=== PATIENT | female | born 1965 | race Caucasian/White ===

== ENCOUNTER 2020-07-25 02:26 | Outpatient (CLI) | payer OTHER, SELFPAY ==
[2020-07-25 21:22] LABS: SARS-CoV-2 RNA PCR Negative
== END 2020-07-25 02:27 | disposition home or self-care (01) ==
LOC: ANHCOVIDDT 02:27
PROVIDERS: PCP Internal Medicine; Visit Provider Surgery
DX: Z01.812 Encounter for preprocedural laboratory examination (principal); Z20.828 Contact with and (suspected) exposure to other viral communicable diseases
CPT/HCPCS: 87635; C9803; U0003

== ENCOUNTER 2020-07-28 01:22 | Day surgery (SDC) | payer OTHER, SELFPAY ==
[2020-07-20 14:54] VITALS: BMI 28.3
[2020-07-28 06:12] VITALS: BP 151/74; PULSE 64; RESP 16; TEMP 36.2; O2SAT 99
[2020-07-28] MEDS: LACTATED RINGERS 1,000 ML 150 ML IV CONT (06:17)
--- NOTE | 2020-07-28 07:26 | WPDANESEPPF ---
Anes - Initial Pre Proc Eval Procedure: Operation Date: 07/28/20 07:30 Proposed Procedures p Screening Colonoscopy - Marquise Douglas DO Date/Time: 07/28/20 07:26 Surgeon: Marquise Douglas DO Pre Op Diagnosis: neoplasm screening Patient Data Age: 55 Gender: F Height: 5 ft 4 in Weight: 73.9 kg Last Vital Signs Temp 97.2 F L 07/28/20 06:12 Pulse 64 07/28/20 06:12 Resp 16 07/28/20 06:12 BP 151/74 H 07/28/20 06:12 Pulse Ox 99 07/28/20 06:12 Allergies Allergy/AdvReac Type Severity Reaction Status Date / Time No Known Allergies Allergy Verified 07/28/20 06:12 Home Medications Medication Instructions Recorded Confirmed Type alprazolam 0.5 mg PO DAILY 07/20/20 07/20/20 History benzonatate 100 mg PO DAILY 07/20/20 07/20/20 History Patient hx anesthesia problems: none Family hx anesthesia problems: none [facility] Past Medical History Medical History (Updated 07/28/20 @ 07:16 by Malcolm Noriega MD) Anxiety Arthritis Social History Social History Living arrangements: alone Spiritual care concerns: No Anes - Eval Final PreProcedure Day of Procedure 07/28/20 07:26 Patient weight: normal Heart: regular rate and rhythm Lungs: clear to auscultation Airway: Mallampati scale class II Neurological: alert and oriented Last oral intake: >/= 8 hours ASA classification: II Emergent: no Anesthetic plan: proceed Anesthesia type and monitoring: general GIVS and standard monitoring Informed Consent: The patient's anesthetic plan and its attendant risks and benefits were discussed with the patient/family/POA. Questions were solicited and answers provided to the satisfaction of the patient/family/POA.
--- NOTE | 2020-07-28 07:27 | PM.IMHP ---
H&P: HPI History of Present Illness Date/Time: 07/28/20 07:27 Chief complaint: neoplasm screening Narrative: Terri Jackman is a 55 year old female who presents for colonoscopy. she has never had one before. Denies hematochezia or melena. No fam hx colon cancer. Review of Systems Review of Systems: All systems reviewed & are unremarkable except as noted in HPI and below Constitutional: Constitutional: Denies chills, Denies fever(s), Denies headache(s) and Denies weight loss Eyes: Eyes: Denies change in vision ENT: Denies dizziness, Denies headache(s), Denies neck mass and Denies throat swelling Cardiovascular: Cardiovascular: Denies chest pain, Denies lightheadedness and Denies dyspnea Respiratory: Respiratory: Denies cough, Denies dyspnea and Denies wheezing Gastrointestinal: Gastrointestinal: Denies abdominal pain, Denies change in bowel habits, Denies nausea and Denies vomiting Genitourinary: Genitourinary: Denies hematuria and Denies dysuria Musculoskeletal: Musculoskeletal: Reports as per HPI Integumentary/Breasts: Skin/Breast: Reports as per HPI Neurologic: Denies dizziness and Denies headache(s) Allergic/Immunologic: Allergic/Immunologic: Denies throat swelling and Denies wheezing PMFSH Past Medical History Medical History Anxiety Arthritis Social History Social History Living arrangements: alone Spiritual care concerns: No Meds Home Medications and Allergies Home Medications Medication Instructions Recorded Confirmed Type alprazolam 0.5 mg PO DAILY 07/20/20 07/20/20 History benzonatate 100 mg PO DAILY 07/20/20 07/20/20 History Allergies Allergy/AdvReac Type Severity Reaction Status Date / Time No Known Allergies Allergy Verified 07/28/20 06:12 Vital Signs Vital Signs - 24 hr 07/28/20 06:12 Temperature 36.2 C L Pulse Rate 64 Respiratory Rate 16 Blood Pressure 151/74 H Pulse Oximetry 99 Exam Const: General: no acute distress and alert Orientation/consciousness: patient oriented x3 HENMT: Head: normocephalic and atraumatic Ears: hearing grossly normal bilaterally General nose exam: Normal nares present Mouth: Yes Normal oral and palatal mucosa present Eyes: Periorbital: periorbital findings normal Sclera: sclerae normal EOM: EOMs intact bilaterally Neck: Neck: normal visual inspection, no lymphadenopathy and trachea midline Chest: Chest palpation & inspection: normal inspection of the chest Resp: Effort & Inspection: normal respiratory effort Auscultation: clear to auscultation bilaterally Cardio: Jugular venous distension: no JVD Rate: regular rate Rhythm: regular rhythm Heart sounds: S1 normal heart sound present and S2 normal heart sound present Peripheral pulses: Peripheral pulses 2+ throughout GI: Inspection: normal to inspection GI Palp: Yes Soft to palpation, No Tenderness to palpation present (GI), No Guarding due to palpation present (GI) and No Rebound tenderness present Percussion: Yes normal to percussion Auscultation: normal bowel sounds : General: Yes no CVA tenderness Back/Spine/Pelvis: Back: no CVA tenderness Neuro: General: patient oriented x3, no focal motor deficits and CN's II-XI intact bilaterally Cognition (Neuro): normal cognition Speech: normal speech Motor exam (neuro): 5/5 motor strength present throughout Extrem: General: capillary refill normal and no clubbing, cyanosis or edema Assessment and Plan Assessment and plan (1) Screening for colorectal cancer: Code(s): Z12.11 - Encounter for screening for malignant neoplasm of colon; Z12.12 - Encounter for screening for malignant neoplasm of rectum Status: Acute Assessment and Plan: I have recommended colonoscopy. I have discussed the procedure, risks, benefits, and alternatives with the patient. All questions answered.
[2020-07-28 07:58] VITALS: BP 126/64; PULSE 72; RESP 20; O2SAT 100
[2020-07-28 08:08] VITALS: BP 116/64; PULSE 62; RESP 20; O2SAT 100
[2020-07-28 08:18] VITALS: BP 118/77; PULSE 60; RESP 20; O2SAT 100
== END 2020-07-28 08:37 | disposition home or self-care (01) ==
PROVIDERS: PCP Internal Medicine; Visit Provider Surgery
PROC: 0DJD8ZZ Inspection of Lower Intestinal Tract, Via Natural or Artificial Opening Endoscopic (ICD-10-PCS; CPT 45378; principal; 2020-07-28 07:30)
DX: Z12.11 Encounter for screening for malignant neoplasm of colon (principal); K57.30 Diverticulosis of large intestine without perforation or abscess without bleeding; K62.1 Rectal polyp; F41.9 Anxiety disorder, unspecified
CPT/HCPCS: 45380; 88305; J2704; J7120

== ENCOUNTER 2022-09-24 12:48 | Emergency (ER) | payer OTHER, SELFPAY ==
--- NOTE | ~2022-09-24 | XR_ITS ---
XR chest 2V 09/24/2022 13:21 Indication: Chest pain Procedure: 2 view chest Comparison: No prior studies for comparison. Findings: Heart size normal. No focal air space disease, pulmonary edema, pleural effusion or suspect ed pneumothorax. Port catheter tip in the SVC. There are bilateral breast implants. Impression: 1: No acute cardiopulmonary disease. Reviewed, dictated and finalized at location A. ET PRESS ASSISTANT Impression: 1: No acute cardiopulmonary disease.
--- NOTE | ~2022-09-24 | CT_ITS ---
EXAMINATION: CTA chest PE protocol DATE: 09/24/2022 20:01 INDICATION: CP, Hx of DVT, +dimer TECHNIQUE: Computed tomography angiography (CTA) of the chest was performed with 100 mL Omnipaque-350 intravenous contrast timed to evaluate the pulmonary arteries. Coronal maximum intensity projection 3D-reconstructions were created by the technologist. The dose-length product (DLP) was 214.72 mGy-cm. Automated exposure control and iterative reconstruction technique were employed. COMPARISON: 09/24/2022. FINDINGS: Lung parenchyma and airways: Cavitary lesion in the right lower lobe measuring 3.1 cm AP by 3.8 cm tr ansverse by 3.2 cm craniocaudad the wall of the cavity is only mildly thickened and fairly uniform, w ith a small amount of internal debris. Pleura: Unremarkable. Thoracic inlet, axillae and chest wall: Bilateral breast implants. Implanted left chest port, termina ting in the distal SVC. Thoracic aorta: Normal. 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 Heart and pericardium: Normal. Coronary artery calcifications: Absent. Upper abdomen: No significant finding. Bones: No acute osseous finding. Pulmonary arteries: Study quality: Adequate. No pulmonary emboli detected. IMPRESSION: 1. No CT evidence of acute pulmonary embolus. 2. Solitary, 3.8 cm cavitary lesion in the right lower lobe. This finding can be seen with, but is no t limited to: infection (cavitating pneumonia, pulmonary tuberculosis, fungal/atypical), malignancy ( primary or secondary), or inflammatory change (Jarred's granulomatosis or rheumatoid nodule). Reviewed, dictated and finalized at location K. ICATION SYSTEMS ARCHITECT IMPRESSION: 1. No CT evidence of acute pulmonary embolus. 2. Solitary, 3.8 cm cavitary lesion in the right lower lobe. This finding can b e seen with, but is not limited to: infection (cavitating pneumonia, pulmonary tuberculosis, fungal/atypical), malignancy (primary or secondary), or inflammat ory change (Jarred's granulomatosis or rheumatoid nodule).
[2022-09-24 12:51] VITALS: BP 159/101; PULSE 77; RESP 20; TEMP 36.1; O2SAT 98
--- NOTE | 2022-09-24 12:54 | ECG_ITS ---
Measurements Intervals [place] Rate: 72 P: 58 UT: 182 QRS: 20 QRSD: 85 T: 38 QT: 386 QTc: 424 Interpretive Statements SINUS RHYTHM LOW QRS VOLTAGE IN PRECORDIAL LEADS BASELINE ARTIFACT- I, II, AVR BORDERLINE ECG NO PREVIOUS ECG AVAILABLE FOR COMPARISON Electronically Signed On 09-24-2022 13:07:51 INSTRUMENT AND CONTROLS TECHNICIAN by Yifan Romero D.O.
[2022-09-24 13:35] LABS: Basophils Percent Auto 0.7 % (0.2-1.2); Eosinophils Absolute Auto 0.1 K/mm3 (0-0.3); Eosinophils Percent Auto 2.1 % (0-4.4); Hematocrit 46.3 % (37.0-47.0); Hemoglobin 14.9 g/dL (12.0-15.0); Immature Granulocyte Absolute 0.02 K/mm3 (0.00-0.031); Immature Granulocyte Percent A 0.3 % (0-0.5); Lymphocytes Absolute Auto 1.74 K/mm3 (0.9-3.2); Lymphocytes Percent Auto 28.8 % (18.3-44.2); Mean Corpuscular HGB Conc 32.2 g/dl (32-36); Mean Corpuscular Hemoglobin 29.7 pg (26-34); Mean Corpuscular Volume 92.4 fl (80-100); Mean Platelet Volume 8.9 fl (7.4-10.4); Monocytes Absolute Auto 0.5 K/mm3 (0.1-0.6); Monocytes Percent Auto 8.9 % (2.6-8.5); Neutrophils Absolute Auto 3.6 K/mm3 (1.3-6.7); Neutrophils Percent Auto 59.2 % (45.5-73.1); Platelet Count Result 222 k/mm3 (150-375); Red Blood Count 5.01 M/mm3 (4.2-5.4); Red Cell Distribution Width 15.2 % (11.5-14.5); White Blood Count 6.1 K/mm3 (4.5-10.0)
[2022-09-24 13:41] LABS: Alanine Aminotransferase 18 U/L (6-35); Albumin Level 4.5 g/dL (3.5-5.1); Alkaline Phosphatase 98 U/L (38-126); Anion Gap 7 mmol/L (8-16); Aspartate Amino Transferase 27 U/L (14-36); Bilirubin,Total 0.7 mg/dL (0.2-1.3); Blood Urea Nitrogen 15 mg/dL (7-17); Calcium 8.9 mg/dL (8.4-10.2); Carbon Dioxide 27 mmol/L (22-30); Chloride 106 mmol/L (98-107); Estimated CRCL calculation 73 ml/min; Estimated Glomerular Filt Rate > 60; Glucose 100 mg/dL (65-110); Lipase 71 U/L (23-300); Prothrombin Time 12.8 Seconds (11.1-14.7); Sodium 140 mmol/L (137-145)
[2022-09-24 13:42] LABS: Partial Thromboplastin Time 26.8 SECONDS (22.3-36.8)
[2022-09-24 13:52] LABS: Troponin I < 0.012 ng/mL (0.000-0.034)
[2022-09-24 16:58] LABS: Troponin I < 0.012 ng/mL (0.000-0.034)
[2022-09-24 18:06] VITALS: BP 172/105; PULSE 78; RESP 18; O2SAT 100
[2022-09-24 18:11] VITALS: PULSE 67
[2022-09-24] MEDS: ASPIRIN 81 MG CHEWABLE TABLET 324 MG PO (18:20)
--- NOTE | 2022-09-24 18:31 | ED.CHESTPAIN ---
HPI - Chest Pain General Chief Complaint: Chest Pain Stated Complaint: chest pain with jaw and left arm pain/numbness Time Seen by Provider: 09/24/22 18:26 Source: patient Mode of arrival: ambulatory Limitations: no limitations History of Present Illness HPI narrative: Patient is 57-year-old female who presents to the ED with report of chest pain. Patient reports she woke up Saturday morning with slight tingling in her left hand. She also noted to having slight discomfort in her left sided jaw. She does note a history of grinding her teeth and did not think much of this at first. The tingling and jaw pain were intermittent throughout the day. She also developed slight heaviness in her lower midsternal chest that day. Her symptoms continued intermittently into today, which prompted her presentation. 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 She is concerned she may have a blood clot in her lungs. She denies any SOB, [place], nausea, vomiting, abdominal pain, fevers, cough or cold symptoms. Denies lower extremity pain or swelling, recent long distance travel. Patient has a previous history of cigarette smoking, quit 13 years ago. History of lung cancer in remission. Denies history of hypertension, hyperlipidemia, diabetes, family history of heart disease in her immediate family members. Related Data Home Medications Medication Instructions Recorded Confirmed alprazolam 0.5 mg tablet 0.5 mg PO DAILY 07/20/20 07/20/20 benzonatate 100 mg capsule 100 mg PO DAILY 07/20/20 07/20/20 levothyroxine 112 mcg tablet mcg 09/24/22 sertraline 50 mg tablet mg 09/24/22 topiramate 50 mg tablet mg 09/24/22 09/24/22 Allergies Allergy/AdvReac Type Severity Reaction Status Date / Time No Known Allergies Allergy Verified 09/24/22 12:48 Review of Systems Review of Systems: CONSTITUTIONAL: Denies fever, chills, or sweats. ENT: Denies rhinorrhea, congestion, sore throat. CARDIOVASCULAR: See HPI. RESPIRATORY: See HPI. GASTROINTESTINAL: Denies abdominal pain, nausea, vomiting, or diarrhea. NEUROLOGIC: See HPI. All systems reviewed & are unremarkable except as noted in HPI and below PMFSH Past Medical History Medical History Anxiety Arthritis History of pulmonary embolism Lung cancer Surgical History Surgical History No pertinent past surgical history Social History Social History Alcohol intake: current Spiritual care concerns: No Exam Narrative: GENERAL: Well appearing, well-nourished, non-toxic, in no acute distress. HEAD: Normocephalic, atraumatic. NECK: Supple. No adenopathy, no masses. RESPIRATORY: Airway patent, respirations nonlabored. Clear to auscultation bilaterally, no rales, rhonchi, wheezing. CARDIOVASCULAR: Regular rate and rhythm without murmurs, rubs, or gallops. Peripheral pulses 2+ and equal bilaterally. ABDOMINAL: Soft, nontender, nondistended, no hepatosplenomegaly. Normoactive BS. MUSCULOSKELETAL: Moves all extremities. Strength/ROM intact without gross deformities. No edema. No calf tenderness. No chest wall tenderness to palpation. SKIN: Warm, dry, normal color. No rashes. NEURO: A&O X3. Speech clear. Cranial nerves II-XII grossly intact. Steady gait. No ataxic movements. PSYCHIATRIC: Appropriate mood and affect. Normal interaction. Course Vital Signs Vital signs: Vital Signs Temperature 97.0 F L 09/24/22 12:51 Pulse Rate 77 09/24/22 12:51 Respiratory Rate 20 09/24/22 12:51 Blood Pressure 159/101 H 09/24/22 12:51 Pulse Oximetry 98 09/24/22 12:51 Oxygen Delivery Room Air 09/24/22 12:51 Temperature 97.0 F L 09/24/22 12:51 Pulse Rate 69 09/24/22 19:29 Respiratory Rate 17 09/24/22 19:29 Blood Pressure 158/89 H 09/24/22 19:36 P
[2022-09-24 19:10] LABS: D Dimer 0.72 ug/mL (<0.48)
[2022-09-24 19:14] LABS: Troponin I < 0.012 ng/mL (0.000-0.034)
[2022-09-24 19:29] VITALS: PULSE 69; RESP 17; O2SAT 98
[2022-09-24 19:36] VITALS: BP 158/89
== END 2022-09-24 21:43 | disposition home or self-care (01) ==
PROVIDERS: Emergency Medicine; Emergency Provider Physician Assistant; PCP Internal Medicine
DX: R07.89 Other chest pain (principal); R03.0 Elevated blood-pressure reading, without diagnosis of hypertension; R91.8 Other nonspecific abnormal finding of lung field; Z85.118 Personal history of other malignant neoplasm of bronchus and lung; M19.90 Unspecified osteoarthritis, unspecified site; Z87.891 Personal history of nicotine dependence; F41.9 Anxiety disorder, unspecified; Z86.711 Personal history of pulmonary embolism; R94.31 Abnormal electrocardiogram [ECG] [EKG]
CPT/HCPCS: 36415; 71046; 71275; 80053; 83690; 84484; 85025; 85380; 85610; 85730; 93005; 99284; A9270; Q9967